=== PATIENT | male | born 1960 | race Hispanic/Latino ===

== ENCOUNTER 2022-01-05 22:51 | Emergency (ER) | payer BC ==
[~2022-01-05] VITALS: Ht 165.1 cm; Wt 65.8 kg
== END 2022-01-05 23:20 | disposition home or self-care (01) ==
LOC: ER 22:56
DX: L08.9 Local infection of the skin and subcutaneous tissue, unspecified (principal); S61.451A Open bite of right hand, initial encounter; W55.01XA Bitten by cat, initial encounter; Y92.098 Other place in other non-institutional residence as the place of occurrence of the external cause; I10 Essential (primary) hypertension; E78.00 Pure hypercholesterolemia, unspecified
CPT/HCPCS: 99282